=== PATIENT | female | born 1965 | race Caucasian/White ===

== ENCOUNTER 2024-11-16 09:03 | Day surgery (SDC) | payer BC ==
[2024-11-16] MEDS ORDERED: propofoL 500 MG/50 ML 50 ML ONE (09:47)
[2024-11-16] MEDS: Lactated Ringers 1,000 ML IV SCH (09:53)
[2024-11-16] MEDS ORDERED: Lactated Ringers 1,000 ML IV SCH (11:00)
[2024-11-16 11:14] VITALS: PULSE 56
[2024-11-16 12:52] VITALS: BP 111/56
[2024-11-17] MEDS ORDERED: Lactated Ringers 1,000 ML IV SCH (07:30)
== END 2024-11-16 12:00 | disposition home or self-care (01) ==
LOC: MW.SDS 09:03
PROVIDERS: ATTEND Surgery
DX: Z12.11 Encounter for screening for malignant neoplasm of colon (principal); R19.5 Other fecal abnormalities; Z88.7 Allergy status to serum and vaccine; Z88.2 Allergy status to sulfonamides
CPT/HCPCS: 45378; J2003; J2371; J2704; J7120; 00811